=== PATIENT | male | born 1965 | race American Indian/Alaskan Native ===

== ENCOUNTER 2019-06-18 10:42 | Outpatient (CLI) | payer OTHER ==
--- NOTE | 2019-06-18 12:23 | XRay Report ---
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 COMPARISON: None. IMPRESSION: Normal bone mineralization. No evidence for fracture, suspicious bone lesion or dislocat ion. There is mild widening of the scapholunate interval suggesting scapholunate ligament injury. The remaining carpal bones are in appropriate relationship. The distal radius and ulna are intact. Mild joint space narrowing at the radiocarpal joint is noted. The soft tissues are unremarkable. Signer Name: Daryl Griggs Jr, MD Signed: 06/18/2019 12:18 PM Workstation Name: [id number]
--- NOTE | 2019-06-18 12:39 | Cat Scan Report ---
CT UPPER EXTREMITY RIGHT WITHOUT CONTRAST INDICATION : S63.0Other dislocation of right wrist and hand, initial encounter. TECHNIQUE: Axial imaging performed through the right wrist without the use of contrast. Sagittal and coronal reformatted images. All CT scans at this location are performed using CT dose reduction for ALARA by means of automated exposure control. COMPARISON: Right wrist films performed the same day FINDINGS: Bone mineralization is normal. There is no evidence for fracture, dislocation or bone lesio n. CT confirms widening of the scapholunate interval measuring 5 mm consistent with scapholunate liga ment injury. The remaining carpal bones are in appropriate alignment. Mild osteoarthritic changes with scattered subchondral cysts are identified throughout the carpal bon es. The distal radius and ulna are intact. Mild joint space narrowing at the radiocarpal joint. The visualized metacarpals are intact and unremarkable. No soft tissue abnormality is detected. IMPRESSION: Findings consistent with scapholunate ligament injury/rupture. Mild to moderate osteoarth ritic changes. Signer Name: Daryl Griggs Jr, MD Signed: 06/18/2019 12:35 PM Workstation Name: [id number]
== END 2019-06-18 10:43 | disposition home or self-care (01) ==
LOC: CT 10:42
PROVIDERS: ATTEND Orthopaedic Surgery
DX: S63.511A Sprain of carpal joint of right wrist, initial encounter (principal); S63.094A Other dislocation of right wrist and hand, initial encounter; I10 Essential (primary) hypertension; Z87.891 Personal history of nicotine dependence; M19.031 Primary osteoarthritis, right wrist; X58.XXXA Exposure to other specified factors, initial encounter; Y93.89 Activity, other specified; Y99.8 Other external cause status; Y92.89 Other specified places as the place of occurrence of the external cause